=== PATIENT | female | born 1940 | race Caucasian/White ===

== ENCOUNTER 2018-01-20 05:38 | Day surgery (SDC) | payer OTHER, MEDICARE ==
[~2018-01-20] VITALS: Ht 162.6 cm; Wt 68.0 kg
[~2018-01-20 05:38] MED LIST: BENTYL10 MG PO; CALCIUM 500 WI1 EAC2 PO; COLESTIPOL HCL1 GM PO; CRANBERRY400 M1 PO; ELAVIL10 MG PO; LO-DOSE ASPIRIN81 M1 PO; METAMUCIL POWD798 GM PO; NORVASC5 MG PO; PROAIR RESPICL90 MCG IH; REQUIP0.5 MG PO; ROBITUSSIN DM118 ML PO; SYNTHROID88 MCG PO; TESSALON PERLE100 MG PO; VENTOLIN HFA18 GM IH; WOMEN'S DAILY1 EAC1 PO; XANAX0.25 MG PO; ZITHROMAX Z-PA250 MG PO
[2018-01-20] MEDS ORDERED: TESSALON PERLE100 MG PO (06:23)
[2018-01-20 06:37] VITALS: BP 156/78
[2018-01-20 06:39] VITALS: BP 156/78
[2018-01-20 09:00] VITALS: BP 129/59
[2018-01-20 09:36] VITALS: BP 143/69
== END 2018-01-20 09:40 | disposition home or self-care (01) ==
LOC: SDC 05:38
PROC: 0WJNXZZ Inspection of Female Perineum, External Approach (ICD-10-PCS; principal; 2018-01-20)
PROC: 0H5AXZZ Destruction of Inguinal Skin, External Approach (ICD-10-PCS; principal; 2018-01-20)
DX: A63.0 Anogenital (venereal) warts (principal); B00.9 Herpesviral infection, unspecified; K62.82 Dysplasia of anus; J44.9 Chronic obstructive pulmonary disease, unspecified; I10 Essential (primary) hypertension; E03.9 Hypothyroidism, unspecified; M85.80 Other specified disorders of bone density and structure, unspecified site; Z87.19 Personal history of other diseases of the digestive system; Z82.49 Family history of ischemic heart disease and other diseases of the circulatory system; Z82.0 Family history of epilepsy and other diseases of the nervous system; Z82.61 Family history of arthritis; F17.200 Nicotine dependence, unspecified, uncomplicated; Z79.82 Long term (current) use of aspirin; Z88.0 Allergy status to penicillin; Z88.1 Allergy status to other antibiotic agents; Z88.8 Allergy status to other drugs, medicaments and biological substances
CPT/HCPCS: 88305; J0330; J0690; J1100; J2405; J3010